=== PATIENT | female | born 1965 | race Two or more races ===

== ENCOUNTER 2023-02-26 19:05 | Inpatient (IN) | payer MEDICAID, OTHER ==
[~2023-02-26] VITALS: Ht 170.2 cm; Wt 51.1 kg
[2023-02-27] MEDS ORDERED: ONDANSETRON HCL 4 MG/2 ML VIAL IV ONE (01:30)
[2023-02-27] MEDS ORDERED: cefTRIAXone 1GM/50ML D5W 50 ML IV ONE (01:30)
[2023-02-27] MEDS ORDERED: ACETAMINOPHEN 325 MG TAB PO ONE (01:30)
[2023-02-27] MEDS ORDERED: HYDROmorphone HCL 2 MG/ML VL/or syr IV ONE (01:30)
[2023-02-27 02:23] LABS: Basophils # (auto) 0 10 ^3/uL (0-0.2); Basophils % (auto) 0.5 % (0.0-2.0); Eosinophils # (auto) 0.3 10 ^3/uL (0-0.8); Hematocrit 39.5 % (36.0-46.0); Hemoglobin 12.6 g/dL (12.2-16.2); Lymphocytes # (auto) 1.7 10 ^3/uL (0.4-5.4); Lymphocytes % (auto) 27.1 % (10.0-50.0); Mean Corpuscular Hemoglobin 29.4 pg (28.0-32.0); Mean Corpuscular Hgb Conc. 31.9 g/dL (32.0-36.0); Mean Corpuscular Volume 92.4 fL (80.0-100.0); Monocytes # (auto) 0.6 10 ^3/uL (0-1.3); Monocytes % (auto) 8.9 % (0.0-12.0); Neutrophils # (auto) 3.7 10 ^3/uL (1.6-8.6); Neutrophils % (auto) 59.5 % (37.0-80.0); Nucleated Red Blood Cells % 0.1 %; Red Blood Cells 4.27 10^6/uL (4.0-5.20); Red Cell Distribution Width 17.2 % (11.8-14.3); White Blood Cell 6.2 10^3/uL (4.4-10.8)
[2023-02-27 02:40] LABS: Partial Thromboplastin Time 24.8 SEC (24.5-34.5); Prothrombin Time 10.5 sec (9.3-11.8)
[2023-02-27 02:52] LABS: Alanine Aminotransferase 12 U/L (7-40); Albumin 3.2 g/dL (3.2-4.8); Alkaline Phosphatase 84 U/L (46-116); Anion Gap 9.1 (5-15); Aspartate Aminotransferase 10 U/L (13-40); BUN/Creatinine Ratio 33.3 (10.0-20.0); Blood Alcohol < 3.0 mg/dL (<10); Blood Urea Nitrogen 15 mg/dL (9-23); Calcium 7.4 mg/dL (8.7-10.4); Carbon Dioxide 20.9 mmol/L (20-30); Chloride 115 mmol/L (98-107); Glucose 141 mg/dL (74-106); Lipase 35 U/L (12-53); Magnesium 1.7 mg/dL (1.6-2.6); Potassium 3.1 mmol/L (3.5-5.1); Sodium 145 mmol/L (136-145)
[2023-02-27 02:53] LABS: Bilirubin, Total 0.2 mg/dL (0.2-1.0); Total Protein 4.9 g/dL (5.7-8.2)
[2023-02-27] MEDS ORDERED: ASPirin 81 mg TAB PO ONE (04:30)
[2023-02-27] MEDS ORDERED: PANTOPRAZOLE 40 MG/10 ML VIAL INJ IV ONE (04:30)
[2023-02-27] MEDS ORDERED: POTASSIUM CHL 20 Meq TABLET PO ONE (04:30)
[2023-02-27 06:21] VITALS: PULSE 74; RESP 18; O2SAT 94
[2023-02-27 07:20] VITALS: PULSE 72; RESP 15; O2SAT 98
[2023-02-27] MEDS ORDERED: NITROGLYCERIN 0.4 MG SL TAB SL PRN (09:15)
[2023-02-27] MEDS ORDERED: MORPHINE SULFATE INJ 2 MG/ml SYRG IV PRN (09:15)
[2023-02-27] MEDS: SODIUM CHLORIDE 0.9% 1,000 ML IV SCH ×2 (09:18→19:20)
[2023-02-27] MEDS: MULTIPLE VITAMIN TAB PO SCH (09:57)
[2023-02-27] MEDS: ASCORBIC ACID 500 MG TAB PO SCH ×2 (09:57→22:19)
[2023-02-27] MEDS: ZINC SULFATE 220mg CAP or TAB PO SCH (09:57)
[2023-02-27] MEDS: ENOXAPARIN SOD 40 MG/0.4 ML SYRINGE SC SCH (09:57)
[2023-02-27 10:59] LABS: Amphetamine Screen, Urine Pos (NEGATIVE); Barbiturate Scree,Urine Neg (NEGATIVE); Benzodiazephine Screen, Urine Neg (NEGATIVE); Cocaine Screen, Urine Neg (NEGATIVE); Opiate Scree,Urine Neg (NEGATIVE)
[2023-02-27 11:00] LABS: Cannabinoid Screen, Urine Neg (NEGATIVE); Phencyclidine Screen, Urine Neg (NEGATIVE)
[2023-02-27 11:05] LABS: Urine Bacteria FEW /hpf (None Seen); Urine Blood Negative /uL (Negative); Urine Clarity HAZY (Clear); Urine Color Yellow (Yellow); Urine Protein, UAD TRACE (Negative); Urine Specific Gravity 1.032 (1.001-1.035); Urine Urobilinogen Normal (Negative); Urine WBC 1 /hpf (0 - 5); Urine pH 6.5 (5.0-8.0)
[2023-02-27 17:18] VITALS: BP 130/62; PULSE 70; RESP 20; TEMP 98.4; O2SAT 95
[2023-02-27] MEDS: ACETAMINOPHEN 325 MG TAB PO PRN (18:58)
[2023-02-27 20:00] VITALS: PULSE 73
[2023-02-27 22:00] VITALS: BP 143/66; PULSE 67; RESP 16; TEMP 98.3; O2SAT 98
[2023-02-28] VITALS (7 sets, daily range): BP systolic 138–155; BP diastolic 73–95; PULSE 52–85; RESP 16–19; TEMP 95–98.7; O2SAT 94–97
[2023-02-28] MEDS: SODIUM CHLORIDE 0.9% 1,000 ML IV SCH ×2 (06:10→18:37)
[2023-02-28 07:35] LABS: Basophils # (auto) 0 10 ^3/uL (0-0.2); Basophils % (auto) 0.7 % (0.0-2.0); Eosinophils # (auto) 0.2 10 ^3/uL (0-0.8); Eosinophils % (auto) 3.9 % (0.0-7.0); Hematocrit 36.4 % (36.0-46.0); Lymphocytes # (auto) 1.9 10 ^3/uL (0.4-5.4); Lymphocytes % (auto) 38.5 % (10.0-50.0); Mean Corpuscular Hemoglobin 30.1 pg (28.0-32.0); Mean Corpuscular Hgb Conc. 33.1 g/dL (32.0-36.0); Mean Corpuscular Volume 91.1 fL (80.0-100.0); Monocytes # (auto) 0.4 10 ^3/uL (0-1.3); Monocytes % (auto) 9.1 % (0.0-12.0); Neutrophils # (auto) 2.3 10 ^3/uL (1.6-8.6); Neutrophils % (auto) 47.8 % (37.0-80.0); Red Cell Distribution Width 16.2 % (11.8-14.3); White Blood Cell 4.9 10^3/uL (4.4-10.8)
[2023-02-28 07:40] LABS: Alanine Aminotransferase 14 U/L (7-40); Alkaline Phosphatase 81 U/L (46-116); Anion Gap 6.5 (5-15); BUN/Creatinine Ratio 17.2 (10.0-20.0); Blood Urea Nitrogen 10 mg/dL (9-23); Calcium 8.7 mg/dL (8.5-10.1); Carbon Dioxide 25.5 mmol/L (20-30); Chloride 108 mmol/L (98-107); Glucose 102 mg/dL (74-106); Potassium 3.7 mmol/L (3.5-5.1); Sodium 140 mmol/L (136-145)
[2023-02-28 07:41] LABS: Albumin 3.6 g/dL (3.2-4.8); Aspartate Aminotransferase 12 U/L (13-40); Bilirubin, Total 0.4 mg/dL (0.2-1.0); Total Protein 5.7 g/dL (5.7-8.2)
[2023-02-28] MEDS: ASCORBIC ACID 500 MG TAB PO SCH ×2 (10:59→22:58)
[2023-02-28] MEDS: MULTIPLE VITAMIN TAB PO SCH (10:59)
[2023-02-28] MEDS: ZINC SULFATE 220mg CAP or TAB PO SCH (10:59)
[2023-02-28] MEDS: ENOXAPARIN SOD 40 MG/0.4 ML SYRINGE SC SCH (10:59)
[2023-02-28] MEDS: cefTRIAXone 1GM/50ML D5W 50 ML IV SCH (11:00)
[2023-02-28] MEDS ORDERED: LACTULOSE 20Gm/30ML SOLN PO ONE (14:00)
[2023-02-28] MEDS: ACETAMINOPHEN 325 MG TAB PO PRN (18:39)
[2023-02-28] MEDS ORDERED: HYDROcodone-ACET 10/325MG TAB PO ONE (22:15)
[2023-02-28] MEDS ORDERED: SERT-206 PO (23:33)
[2023-02-28] MEDS ORDERED: MONT5CHW12 PO (23:33)
[2023-02-28] MEDS ORDERED: TERA1CAP50 PO (23:33)
[2023-02-28] MEDS ORDERED: OXYB5TAB10 PO (23:33)
[2023-02-28] MEDS ORDERED: GABA-1250 PO (23:33)
[2023-02-28] MEDS ORDERED: BACL10TA PO (23:33)
[2023-03-01] VITALS (8 sets, daily range): BP systolic 124–147; BP diastolic 77–85; PULSE 67–84; RESP 18–22; TEMP 98.1–98.5; O2SAT 93–97
[2023-03-01] MEDS: SODIUM CHLORIDE 0.9% 1,000 ML IV SCH ×3 (07:40→21:15)
[2023-03-01] MEDS: MULTIPLE VITAMIN TAB PO SCH (10:08)
[2023-03-01] MEDS: ASCORBIC ACID 500 MG TAB PO SCH ×2 (10:08→23:59)
[2023-03-01] MEDS: ENOXAPARIN SOD 40 MG/0.4 ML SYRINGE SC SCH (10:08)
[2023-03-01] MEDS: ZINC SULFATE 220mg CAP or TAB PO SCH (10:08)
[2023-03-01] MEDS: cefTRIAXone 1GM/50ML D5W 50 ML IV SCH (10:08)
[2023-03-01] MEDS ORDERED: hydrALAZINE HCL 20 MG/ML VL IV PRN (11:00)
[2023-03-01] MEDS ORDERED: LISINOPRIL 5 MG TAB PO ONE (11:00)
[2023-03-01] MEDS ORDERED: CIPR-173 PO (11:43)
[2023-03-02 05:00] VITALS: BP 145/74; PULSE 78; RESP 22; TEMP 99.1; O2SAT 95
[2023-03-02] MEDS: SODIUM CHLORIDE 0.9% 1,000 ML IV SCH ×2 (07:15→09:41)
[2023-03-02 08:00] VITALS: PULSE 76; RESP 18; O2SAT 96
[2023-03-02] MEDS: cefTRIAXone 1GM/50ML D5W 50 ML IV SCH ×2 (09:00→09:41)
[2023-03-02] MEDS: MULTIPLE VITAMIN TAB PO SCH (09:41)
[2023-03-02] MEDS: ASCORBIC ACID 500 MG TAB PO SCH (09:41)
[2023-03-02] MEDS: ZINC SULFATE 220mg CAP or TAB PO SCH (09:41)
[2023-03-02] MEDS: ENOXAPARIN SOD 40 MG/0.4 ML SYRINGE SC SCH (09:43)
[2023-03-02] MEDS ORDERED: LISINOPRIL 5 MG TAB PO SCH (10:00)
[2023-03-02] MEDS ORDERED: FLEET ENEMA(ADULT) 135 ML PR ONE (11:45)
[2023-03-02] MEDS ORDERED: LACTULOSE 20Gm/30ML SOLN PO ONE (11:45)
== END 2023-03-02 13:00 | disposition home or self-care (01) | DRG 720 ==
LOC: ER 19:10 → TELE 02-27 09:09 → TELE-WESTW 02-27 17:01
PROVIDERS: ADMIT Nurse Practitioner Family; ATTEND Family Medicine
DX: A41.9 Sepsis, unspecified organism (principal); I21.A1 Myocardial infarction type 2; E44.1 Mild protein-calorie malnutrition; L89.152 Pressure ulcer of sacral region, stage 2; I69.354 Hemiplegia and hemiparesis following cerebral infarction affecting left non-dominant side; E11.40 Type 2 diabetes mellitus with diabetic neuropathy, unspecified; N39.0 Urinary tract infection, site not specified; E78.5 Hyperlipidemia, unspecified; E87.6 Hypokalemia; E78.00 Pure hypercholesterolemia, unspecified; I10 Essential (primary) hypertension; I16.0 Hypertensive urgency; R62.7 Adult failure to thrive; Z74.01 Bed confinement status; Z99.3 Dependence on wheelchair; Z87.891 Personal history of nicotine dependence; Z68.1 Body mass index [BMI] 19.9 or less, adult
CPT/HCPCS: 36415; 71045; 74177; 80053; 80307; 80320; 81001; 83605; 83690; 83735; 84484; 85025; 85610; 85730; 87040; 87086; 87088; 87186; 93005; 96361; 96365; 96372; 99291; G0378; J0696; J2405